=== PATIENT | male | born 1975 | race Caucasian/White ===

== ENCOUNTER → 2019-10-11 | Outpatient (CLI) | payer OTHER ==
--- NOTE | 2019-10-11 22:09 | MR ---
MRI CERVICAL SPINE: CLINICAL HISTORY: Neck pain causing tingling down left arm for 2 months. Strain injury per order. TECHNIQUE: Multiplanar, multisequence imaging of the cervical spine is performed without IV contrast. COMPARISON: None. FINDINGS: Coronal images show slight levoconvex scoliotic curvature centered mid cervical spine Sagit holger images of the cervical spine show the craniocervical junction to appear within normal limits. Sag ittal images show reversal of normal cervical curvature centered C3-C4 level with grade 1 retrolisthe sis C4 on C5, C5 on C6, and C6 on C7. Spinal cord shows diminished AP diameter and abnormal signal C 3-C4 through the C4-C5 disc space level for reference sagittal image 6. The vertebral body heights ar e normal. Fairly moderate disc space narrowing C4-C5 and C5-C6 levels. Mild to moderate disc space na rrowing with mild to moderate anterior spurring C6-C7 level. The bone marrow signal intensity is wit hin normal limits. Axial images at C2-C3 level shows central disc protrusion mildly facing anterior thecal sac, asymmetr ic mild left-sided neural foraminal narrowing due to uncovertebral facet degenerative change. Axial images at C3-C4 level show large posterior spur disc complex effacing the anterior thecal sac u p to ventral surface of spinal cord which is flattened and has abnormal signal, there is advanced lef t and moderate right-sided neural foraminal narrowing noted. Axial images at C4 level show improvement in the AP diameter with some persistent abnormal spinal cor d signal. Axial images at C4-C5 level showed broad based posterior disc protrusion effaces the anterior thecal sac of the ventral surface of spinal cord with some increased cord signal and moderate right greater than left bilateral neural foraminal narrowing. Axial images at C5-C6 level show spondylolisthesis and broad-based posterior disc protrusion effacing anterior thecal sac and causing advanced bilateral neural foraminal narrowing. Axial images at C6-C7 level shows broad-based posterior disc protrusion effacing anterior thecal sac and nearly up to ventral surface of spinal cord and causing moderate to advanced left greater than ri ght bilateral neural foraminal narrowing. Axial images at C7-T1 level are within normal limits. IMPRESSION: Loss of normal cervical curvature with fairly advanced multilevel degenerative changes gr eatest at C3-C4 through the C6-C7 levels as detailed above. Evidence of multilevel significant spinal canal narrowing with some areas of spinal cord effacement and edema centered between the C3-C4 and C 4-C5 disc spaces. Neurosurgical consultation is advised.
== END | disposition home or self-care (01) ==
LOC: RADMRIMAIN 21:09
PROVIDERS: ATTEND Family Medicine
DX: M48.02 Spinal stenosis, cervical region (principal); M47.812 Spondylosis without myelopathy or radiculopathy, cervical region; G95.19 Other vascular myelopathies; R90.89 Other abnormal findings on diagnostic imaging of central nervous system
CPT/HCPCS: 72141